=== PATIENT | male | born 1955 | race African-American/Black ===

== ENCOUNTER 2018-05-20 11:20 | Emergency (ER) | payer MEDICARE ==
[~2018-05-20] VITALS: Ht 175.3 cm; Wt 97.5 kg
[2018-05-20 11:41] VITALS: Ht 175.3 cm; Wt 97.5 kg
[2018-05-20 12:13] LABS: BASOPHIL % 0.9 % (0-2); PLATELET COUNT 224 x10^3mcL (130-400); RED CELL DISTRIBUTION WIDTH 13.6 % (11.5-14.5)
[2018-05-20 12:34] LABS: CALCIUM 8.9 mg/dL (8.5-10.1); CARBON DIOXIDE 25.3 mmol/L (21-32); CREATININE SERUM 1.7 mg/dL (0.7-1.3); POTASSIUM SERUM 3.3 mmol/L (3.5-5.1)
[2018-05-20 12:37] LABS: ALBUMIN 3.6 g/dL (3.4-5.0); BILIRUBIN TOTAL 0.61 mg/dL (0.20-1.00); TOTAL PROTEIN, SERUM 7.6 g/dL (6.4-8.2)
[2018-05-20 14:59] VITALS: BP 128/73
== END 2018-05-20 14:59 | disposition short-term general hospital (02) ==
LOC: ED 11:20
PROVIDERS: Emergency Medicine
DX: I21.4 Non-ST elevation (NSTEMI) myocardial infarction (principal); E87.6 Hypokalemia; I12.9 Hypertensive chronic kidney disease with stage 1 through stage 4 chronic kidney disease, or unspecified chronic kidney disease; N18.3 Chronic kidney disease, stage 3 (moderate); E78.00 Pure hypercholesterolemia, unspecified; F17.210 Nicotine dependence, cigarettes, uncomplicated
CPT/HCPCS: 83880; 99406; J2270